=== PATIENT | male | born 1955 | race Caucasian/White ===

== ENCOUNTER 2017-03-31 06:33 | Day surgery (SDC) | payer BC ==
[~2017-03-31 06:33] MED LIST: Lactated Ringers 1,000 ML IV SCH; Lidocaine 1%/Sod Bicarbonate in NS 8.4% 1 ML Syringe IV PRN; Sodium Chloride 0.9% 10 ML Syringe FLUSH PRN
[2017-03-31] MEDS ORDERED: fentaNYL 100 MCG/2 ML SDV ONE (06:52)
[2017-03-31] MEDS ORDERED: Midazolam 1 MG/ML 2 ML SDV ONE ×2 (06:52→07:26)
[2017-03-31] MEDS ORDERED: Propofol 200 MG/20 ML SDV ONE (06:52)
[2017-03-31] MEDS ORDERED: Lidocaine 1% 4 ML ONE (06:55)
[2017-03-31] MEDS ORDERED: Bupivacaine 0.25% 30 ML SDV ONE (06:58)
[2017-03-31] MEDS ORDERED: Lidocaine 1% 50 ML MDV ONE (07:01)
--- NOTE | 2017-03-31 07:02 | PCM.PREANE ---
Preanesthetic Assessment - Anesthesia/Transfusion/Family Hx Anesthesia History: Prior Anesthesia Without Reaction Family History of Anesthesia Reaction: Yes Transfusion History: No Prior Transfusion(s) Type of Transfusion Reactions: Reports: Unknown Intubation History: Unknown - Review of Systems General: No Symptoms Pulmonary: No Symptoms Cardiovascular: Other (HTN controlled with medications, HLD- controlled with meds ) Gastrointestinal: Other (GERD- controlled with meds ) Neurological: No Symptoms Other: Reports: Anxiety - Physical Assessment NPO Status Date: 03/30/17 NPO Status Time: 23:30 Pulse: 87 O2 Sat by Pulse Oximetry: 96 Respiratory Rate: 16 Blood Pressure: 143/101 Temperature: 36.3 C Height: 1.73 m Weight: 86.183 kg ASA Class: 2 Mental Status: Alert & Oriented x3 Airway Class: Mallampati = 3 Dentition: Reports: Broken Tooth/Teeth (front top teeth appear slightly wornn down/ broken off L>R), Missing Tooth/Teeth (multiple missing teeth (Molars)) Thyro-Mental Finger Breadths: 3 Mouth Opening Finger Breadths: 3 ROM/Head Extension: Limited/Partial Lungs: Clear to auscultation, Normal respiratory effort Cardiovascular: Regular Rate, Regular Rhythm - Lab Values: Laboratory Last Values MRSA (PCR) Negative 03/29/17 11:10 - Allergies Allergies/Adverse Reactions: Allergies Allergy/AdvReac Type Severity Reaction Status Date / Time escitalopram [From Lexapro] Allergy Diarrhea Verified 03/30/17 11:55 - Blood Blood Available: No Product(s) Available: None - Anesthesia Plan Pre-Op Medication Ordered: [employer]: Metoprolol Med Last Dose Date: 03/30/17 Med Last Dose Time: 12:00 - Acknowledgements Anesthesia Type Planned: MAC Pt an Appropriate Candidate for the Planned Anesthesia: Yes Alternatives and Risks of Anesthesia Discussed w Pt/Guardian: Yes Pt/Guardian Understands and Agrees with Anesthesia Plan: Yes PreAnesthesia Questionnaire HEENT History: Reports: None Cardiovascular History: Reports: High cholesterol, Hypertension, Other (see below) Other Cardiovascular History: precordial pain Respiratory History: Reports: None Gastrointestinal History: Reports: GERD Genitourinary History: Reports: None HISTORIOGRAPHY TEACHER History: Reports: None Musculoskeletal History: Reports: Arthritis Neurological History: Reports: None Psychiatric History: Reports: Anxiety Endocrine/Metabolic History: Reports: None Hematologic History: Reports: None Immunologic History: Reports: None Oncologic (Cancer) History: Reports: None Dermatologic History: Reports: None - Past Surgical History Head Surgeries/Procedures: Reports: None - SUBSTANCE USE Smoking Status *Q: Current Every Day Smoker (1ppd for 43 years) Tobacco Use Within Last Twelve Months: Cigarettes Days Per Week of Alcohol Use: 7 Number of Drinks Per Day: 2 Total Drinks Per Week: 14 Recreational Drug Use History: No - HOME MEDS Home Medications: Home Meds Aspirin [Halfprin] 81 mg PO DAILY 02/22/15 [History] Nitroglycerin 0.4 mg SL Q5M PRN #15 tab.subl 02/22/15 [Rx] Metoprolol Succinate 50 mg PO 1200 03/30/17 [History] Omeprazole Magnesium [Prilosec] 10 mg PO DAILY 03/30/17 [History] atorvaSTATin Calcium [Atorvastatin Calcium] 10 mg PO 1200 03/30/17 [History] busPIRone HCl [Buspirone HCl] 2.5 mg PO BID 03/30/17 [History] Hydrocodone/Acetaminophen [[place] 5-325 Tablet] 1 - 2 each PO Q6H PRN #20 tablet 03/31/17 [Rx] - CURRENT (IN HOUSE) MEDS Current Meds: Current Medications Lactated Ringer's (Ringers, Lactated) 1,000 mls @ 125 mls/hr IV ASDIRECTED MYKEL Stop: 03/31/17 23:00 Last Admin: 03/31/17 06:50 Dose: 125 mls/hr Lidocaine/Sodium Bicarbonate (Buffered Lidocaine 1% In Ns 8.4%) 0.25 ml IV ONETIME PRN PRN Reason: Prior to IV Start Stop: 03/31/17 18:00 Sodium Chloride (Saline Flush) 10 ml FLUSH ASDIRECTED PRN PRN Reason: Keep Vein Open Stop: 03/31/17 18:00 Discontinued Medications Fentanyl (Sublimaze) Confirm Administered Dose 100 mcg .ROUTE .STK-MED ONE Stop: 03/31/17 06:53 Lidocaine HCl (Xylocaine-Mpf 1%) Confirm Administered Dose 4 mls @ as directed .ROUTE .STK-MED ONE Stop: 03/31/17 06:56 Midazolam HCl (Versed 1 Mg/Ml) Confirm Administered Dose 2 mg .ROUTE .STK-MED ONE Stop: 03/31/17 06:53 Propofol (Diprivan 20 Ml) Confirm Administered Dose 400 mg .ROUTE .[facility] ONE Stop: 03/31/17 06:53
[2017-03-31] MEDS ORDERED: Dexamethasone 4 MG/ML SDV ONE (07:54)
--- NOTE | 2017-03-31 08:08 | PCM48HPAN ---
Post Anesthesia Note - EVALUATION WITHIN 48HRS OF ANESTHETIC Vital Signs in Normal Range: Yes Patient Participated in Evaluation: Yes Respiratory Function Stable: Yes Airway Patent: Yes Cardiovascular Function Stable: Yes Hydration Status Stable: Yes Pain Control Satisfactory: Yes Nausea and Vomiting Control Satisfactory: Yes Mental Status Recovered: Yes
[2017-03-31 08:46] VITALS: BP 123/87
--- NOTE | 2017-03-31 09:57 | PCM.OPNOTE ---
- General Post-Op/Procedure Note Date of Surgery/Procedure: 03/31/17 Operative Procedure(s): right hand carpal tunnel release Pre Op Diagnosis: right median nerve compression neuropathy Post-Op Diagnosis: Same Anesthesia Technique: Local, MAC Primary Surgeon: Espinoza Perera Anesthesia Provider: Asif David Miller Head Assistant Wet Process: Afia Stahl EBL in mLs: 5 Complications: None Condition: Good Free Text/Narrative:: Intake & Output 03/30/17 03/31/17 03/31/17 22:59 06:59 14:59 Intake Total 700 Balance 700
--- NOTE | 2017-03-31 10:47 | OR ---
DATE OF OPERATION: 03/31/2017 SURGEON: Espinoza Perera MD OPERATION PERFORMED: Right hand carpal tunnel release. PREOPERATIVE DIAGNOSIS: Right median nerve compression neuropathy. POSTOPERATIVE DIAGNOSIS: Right median nerve compression neuropathy. ANESTHESIA: Local MAC. ANESTHESIA PROVIDER: Asif David. SIXTH GRADE TEACHER: Afia Stahl PA-C. ESTIMATED BLOOD LOSS: 5 mL. COMPLICATIONS: None. CONDITION: Stable. DESCRIPTION OF PROCEDURE: The patient was identified in the preop holding area. All proper sites were marked and identified by the surgeon. The patient was taken back to the operating theater, where after adequate anesthesia, the patient's right upper extremity was sterilely prepped and draped in the usual sterile fashion. OR- wide time-out was performed. The patient did not receive Ancef as it was not indicated for soft tissue hand procedure. At this time, an Esmarch was used as a tourniquet on the forearm. 1% lidocaine without epinephrine and 0.25% Marcaine without epinephrine were used to anesthetize the palmar cutaneous branch of the median nerve, and the incisional site using [place] cardinal line and ulnar border of the fourth digit. Incision was made with a #15 blade. Blunt dissection was taken down to the palmar cutaneous fascia. Palmar cutaneous fascia was then incised with a [place] blade. A small rent was made in the transverse carpal ligament. A [place] elevator was placed under the transverse carpal ligament distally. This was then released over the top with a [place] blade. Tenotomy scissors was used to release down to the palmar arch making sure to stop just short. It was found to be completely released distally. Attention was turned proximally. At this time, tenotomy scissors was used for release of the forearm fascia as well as transverse carpal ligament proximally making sure to keep the tips at ulnar to protect the palmar cutaneous branch of the median nerve. At this time, it was found to be adequately released both proximally and distally. Adequate saline was irrigated through the wound. 4-0 nylon simple suture was used for closure of the skin. The patient was placed in a soft tissue dressing. He tolerated the procedure well. MMODAL /[id number]
== END 2017-03-31 08:50 | disposition home or self-care (01) ==
LOC: JD.SDS 06:33
PROVIDERS: ATTEND Orthopaedic Surgery
PROC: 01N50ZZ Release Median Nerve, Open Approach (ICD-10-PCS; principal; 2017-03-31)
DX: G56.01 Carpal tunnel syndrome, right upper limb (principal); F41.9 Anxiety disorder, unspecified; E78.2 Mixed hyperlipidemia; I10 Essential (primary) hypertension; M19.90 Unspecified osteoarthritis, unspecified site; K21.9 Gastro-esophageal reflux disease without esophagitis; F17.210 Nicotine dependence, cigarettes, uncomplicated; Z79.82 Long term (current) use of aspirin; Z79.899 Other long term (current) drug therapy; Z88.8 Allergy status to other drugs, medicaments and biological substances
CPT/HCPCS: 64721; 87641; J1100; J2250; J3010; J7120; 01810; J2704; J3490

== ENCOUNTER 2023-10-31 08:10 | Day surgery (SDC) | payer MEDICARE, BC ==
[~2023-10-31 08:10] MED LIST changes: -Lidocaine 1%/Sod Bicarbonate in NS 8.4% 1 ML Syringe IV PRN; +Morphine 8 MG, EPINEPHrine 0.3 MG, Cefuroxime 750 MG, Ketorolac 30 MG, Sodium Chloride ... PRN; +Sodium Chloride 0.9% 10 ML Syringe FLUSH SCH
[2023-10-31] MEDS ORDERED: Ondansetron 4 MG/2 ML SDV IVPUSH PRN (08:42)
[2023-10-31] MEDS ORDERED: fentaNYL 100 MCG/2 ML SDV IVPUSH PRN (08:42)
[2023-10-31] MEDS ORDERED: HYDROmorphone 0.5 MG/0.5 ML Syringe IVPUSH PRN (08:42)
[2023-10-31] MEDS ORDERED: Vancomycin 1 GM SDV ONE (09:12)
[2023-10-31] MEDS ORDERED: Tranexamic Acid 1,000 MG/10 ML Vial ONE (09:12)
[2023-10-31] MEDS ORDERED: fentaNYL 100 MCG/2 ML SDV ONE (09:46)
[2023-10-31] MEDS ORDERED: Midazolam 1 MG/ML 2 ML SDV ONE (09:46)
[2023-10-31] MEDS ORDERED: ceFAZolin 2 GM Vial ONE (09:47)
[2023-10-31] MEDS ORDERED: Lidocaine 1% 4 ML ONE (09:47)
[2023-10-31] MEDS ORDERED: Propofol 200 MG/20 ML SDV ONE ×2 (09:47→12:32)
[2023-10-31] MEDS ORDERED: Ketorolac 30 MG/ML SDV ONE (11:53)
[2023-10-31] MEDS ORDERED: oxyCODONE 5 MG Tab PO PRN (13:46)
[2023-10-31 16:08] VITALS: PULSE 61
[2023-10-31 16:57] VITALS: BP 128/78
== END 2023-10-31 16:45 | disposition home or self-care (01) ==
LOC: JD.SDS 08:10
PROVIDERS: ATTEND Orthopaedic Surgery
DX: M16.12 Unilateral primary osteoarthritis, left hip (principal); I10 Essential (primary) hypertension; E78.2 Mixed hyperlipidemia; K21.9 Gastro-esophageal reflux disease without esophagitis; F41.9 Anxiety disorder, unspecified; E66.9 Obesity, unspecified; Z68.31 Body mass index [BMI] 31.0-31.9, adult; F17.210 Nicotine dependence, cigarettes, uncomplicated; Z79.899 Other long term (current) drug therapy; Z88.8 Allergy status to other drugs, medicaments and biological substances
CPT/HCPCS: 0055T; 27130; 36415; 73501; 86850; 86900; 86901; 97116; 97161; A9270; C1713; C1776; J0171; J0690; J0697; J1885; J2250; J2270; J2704; J3010; J3370; J7030; J7120; 01214; J3490

== ENCOUNTER → 2024-09-24 | Day surgery (SDC) | payer BC, MEDICARE ==
[~2024-09-24] MED LIST changes: +Lactated Ringers 1,000 ML ONE; +Lidocaine 1% 4 ML ONE; +Lidocaine 1% PF 2 ML SDV ONE; -Morphine 8 MG, EPINEPHrine 0.3 MG, Cefuroxime 750 MG, Ketorolac 30 MG, Sodium Chloride ... PRN; +Propofol 200 MG/20 ML SDV ONE
[2024-09-24] MEDS: Lactated Ringers 1,000 ML IV SCH (09:35)
[2024-09-24] MEDS: Albuterol 0.083% 2.5 MG/3 ML Neb Soln NEB ONE (10:09)
[2024-09-24 13:46] VITALS: BP 116/77; PULSE 84
== END | disposition home or self-care (01) ==
LOC: JD.SDS 09:07
PROVIDERS: ATTEND Surgery
DX: D12.4 Benign neoplasm of descending colon (principal); D12.0 Benign neoplasm of cecum; D12.8 Benign neoplasm of rectum; K63.5 Polyp of colon; K21.00 Gastro-esophageal reflux disease with esophagitis, without bleeding; K57.30 Diverticulosis of large intestine without perforation or abscess without bleeding; K64.8 Other hemorrhoids; K64.4 Residual hemorrhoidal skin tags; K44.9 Diaphragmatic hernia without obstruction or gangrene; D50.9 Iron deficiency anemia, unspecified; Z86.0100 Personal history of colon polyps, unspecified; I10 Essential (primary) hypertension; E78.2 Mixed hyperlipidemia; F17.210 Nicotine dependence, cigarettes, uncomplicated; Z79.82 Long term (current) use of aspirin; Z79.899 Other long term (current) drug therapy
CPT/HCPCS: 43239; 45380; J2704; J7120; 00813; J3490; J7620-GY